=== PATIENT | female | born 1950 | race Caucasian/White ===

== ENCOUNTER → 2018-12-01 | Outpatient (CLI) | payer MEDICARE ==
[~2018-12-01] MED LIST: ASP81TEC PO; BUDE6HFA IH; CALC-80 PO; OMEG1CAP51 PO; SIMV80TA3 PO
[2018-12-01 15:37] LABS: ABG BASE EXCESS 0.9 MMOL/L (-2.5-2.5); ABG OXYGEN SATURATION 95 % (94-100); ABG PCO2 38 MMHG (35-45); ABG PH 7.43 (7.37-7.43); ABG PO2 70 MMHG (79-93); ABG TCO2 26.1 MMOL/L (21.0-31.0); ALLENS TEST POSITIVE
--- NOTE | 2018-12-01 15:37 | NUR ---
PT SATS DID NOT DROP BELOW 89% WITH EXERTION. Addendum: 12/01/18 at 1537 by SHIRA [email or web address] RT Amended: Links added.
[2018-12-01 15:38] LABS: PATIENT TEMP 97.2; VENTILATOR NO
== END ==
LOC: RT 15:01
PROVIDERS: ATTEND Nurse Practitioner Family
DX: J44.9 Chronic obstructive pulmonary disease, unspecified (principal); R06.02 Shortness of breath; Z72.0 Tobacco use
CPT/HCPCS: 36600; 82805; 94761

== ENCOUNTER 2018-12-24 08:18 | Outpatient (CLI) | payer MEDICARE ==
[2018-12-24] MEDS ORDERED: RT-ALBUTEROL SULF 2.5 MG/3 ML PRE-MIX VIAL INH ONE (08:45)
== END 2018-12-24 10:15 | disposition home or self-care (01) ==
LOC: RT 08:18
PROVIDERS: ATTEND Nurse Practitioner Family
DX: J44.9 Chronic obstructive pulmonary disease, unspecified (principal); R06.02 Shortness of breath; G47.36 Sleep related hypoventilation in conditions classified elsewhere; R00.0 Tachycardia, unspecified; R00.1 Bradycardia, unspecified; Z72.0 Tobacco use
CPT/HCPCS: 94060; 94726; 94729